=== PATIENT | male | born 1995 | race Caucasian/White ===

== ENCOUNTER 2017-11-05 20:25 | Emergency (ER) | payer BC ==
[~2017-11-05] VITALS: Ht 177.8 cm; Wt 125.0 kg
[2017-11-05 20:27] VITALS: BP 147/89
[2017-11-05] MEDS ORDERED: METHOCARBAMOL 750 MG TABLET PO ONE (21:00)
[2017-11-05] MEDS ORDERED: KETOROLAC 30 MG/1 ML IM ONE (21:00)
[2017-11-05] MEDS ORDERED: METHOCARBAMOL 750 MG TABLET ONE (21:24)
[2017-11-05] MEDS ORDERED: OXYcodone/APAP 5/325MG TABLET ONE (21:24)
[2017-11-05] MEDS ORDERED: KETOROLAC 30 MG/1 ML ONE (21:24)
[2017-11-05] MEDS ORDERED: OXYcodone/APAP 5/325MG TABLET PO ONE (21:30)
== END 2017-11-05 21:57 | disposition home or self-care (01) ==
LOC: ED 21:51
DX: S39.012A Strain of muscle, fascia and tendon of lower back, initial encounter (principal); I10 Essential (primary) hypertension; X50.9XXA Other and unspecified overexertion or strenuous movements or postures, initial encounter; Y93.F2 Activity, caregiving, lifting; Y92.39 Other specified sports and athletic area as the place of occurrence of the external cause; Y99.9 Unspecified external cause status
CPT/HCPCS: 72110; 96372; 99284; J1885